=== PATIENT | female | born 1980 | race Caucasian/White ===

== ENCOUNTER 2017-12-02 20:18 | Emergency (ER) | payer BC, MEDICAID ==
--- NOTE | 2017-12-02 21:00 | Emergency Department Record ---
History of Present Illness - General Chief Complaint: Shortness of breath Stated Complaint: AYDEN Time Seen by Provider: 12/02/17 20:53 Source: Patient Mode of Arrival: Ambulatory Limitations: No limitations - History of Present Illness Initial Comments: 37 yo female presents to ED for evaluation of difficulty in breathing symptoms that began last night and non-productive cough symptoms. Patient reports that she was released from [facility] this afternoon following . Patient reports fever and symptoms of "bronchitis" that she gets annually. Patient denies worsening abdominal pain following delivery or vaginal discharge symptoms. Patient denies health problems other than asthma. MD Complaint: Shortness of breath Onset/Timin -: Days(s) Severity: Moderate Consistency: Constant Improves With: Nothing Worsens With: Nothing Associated Symptoms: Fever Treatments Prior to Arrival: None - Related Data Home Oxygen Therapy: No Home Medications Medication Instructions Recorded Confirmed Last Taken Oxycodone HCl/Acetaminophen 1 tab PO Q6H PRN 12/02/17 12/02/17 Unknown [Oxycodone/Acetaminophen 5mg/325mg] Previous Rx's Medication Instructions Recorded Amoxicillin 500 mg PO TID #30 capsule 12/02/17 Allergies Allergy/AdvReac Type Severity Reaction Status Date / Time hydrocodone AdvReac VOMITING Verified 12/02/17 21:15 Review of Systems Constitutional: Reports: Chills, Fever, Malaise. Denies: Night sweats Eyes: Denies: Eye discharge, Eye pain ENT: Denies: Congestion, Ear pain, Epistaxis Respiratory: Reports: Cough, Dyspnea Cardiovascular: Denies: Chest pain, Dyspnea on exertion, Edema Endocrine: Denies: Fatigue, Heat or cold intolerance Gastrointestinal: Denies: Abdominal pain, Nausea, Vomiting Genitourinary: Denies: Incontinence, Retention Musculoskeletal: Denies: Arthralgia, Back pain, Joint swelling Skin: Denies: Bruising, Change in color Neurological: Denies: Abnormal gait, Confusion, Headache, Seizure Psychiatric: Denies: Anxiety Hematological/Lymphatic: Denies: Anemia, Blood Clots Physical Exam - General General Appearance: Alert, Oriented x3, Cooperative, Mild distress Limitations: No limitations - Head Head exam: Atraumatic, Normocephalic, Normal inspection Head exam detail: negative: Abrasion, Contusion, Morales's sign, General tenderness, Hematoma, Laceration - Eye Eye exam: Normal appearance. negative: Conjunctival injection, Periorbital swelling, Periorbital tenderness, Scleral icterus - ENT Ear exam: negative: Auricular hematoma, Auricular trauma Nasal Exam: negative: Active bleeding, Discharge, Dried blood, Foreign body Mouth exam: negative: Drooling, Laceration, Muffled voice, Tongue elevation - Neck Neck exam: Normal inspection. negative: Meningismus, Tenderness - Respiratory Respiratory exam: Normal lung sounds bilaterally. negative: Rales, Respiratory distress, Rhonchi, Stridor - Cardiovascular Cardiovascular Exam: Regular rate, Normal rhythm, Normal heart sounds - GI/Abdominal GI/Abdominal exam: Soft. negative: Rebound, Rigid, Tenderness - Rectal Rectal exam: Deferred - exam: Deferred - Extremities Extremities exam: Normal inspection. negative: Calf tenderness, Pedal edema, Tenderness - Back Back exam: Denies: CVA tenderness (R), CVA tenderness (L) - Neurological Neurological exam: Alert, Normal gait, Oriented X3 - Psychiatric Psychiatric exam: Normal affect, Normal mood - Skin Skin exam: Normal color, Other (There is no erythema or induration to the left breast on examination, fullness and discomfort are likely the resuult of a blocked duct.). negative: Abrasion Type of lesion: negative: abrasion Course Vital Signs 12/02/17 20:52 Temperature 100.1 F H Pulse Rate [ 86 Pulse Ox Probe] Respiratory 20 Rate Blood Pressure 169/98 [Left Arm] Pulse Ox 97 - Reevaluation(s) Reevaluation #1: 12/02/17 21:41 UA pending, labs are otherwise grossly unremarkable for an acute process. Reevaluation #2: 12/02/17 22:01 CXR: No acute process. UA pending at this time. Reevaluation #3: 12/02/17 22:22 UA reviewed: WBC 0-2 RBC TNTC Bacteria: Few Reevaluation #4: 12/02/17 22:56 Case was discussed with Dr. Melchor (on-call for Dr. Layton), recommends follow-up in 1-2 days for BP evaluation and reassessment. Patient was updated on all results and appears stable for discharge on Amoxicillin for URI symptoms. Patient has no clinical evidence for endometritis on examination Medical Decision Making - Lab Data Result diagrams: 12/02/17 21:05 12/02/17 21:05 Disposition Disposition: Discharge Clinical Impression: fever Disposition: Home, Self-Care Condition: (2) Stable Instructions: Upper Respiratory Infection (ED) Additional Instructions: Return to ED if your symptoms worsen or if you have any concerns. Amoxicillin as directed. Follow-up with your family doctor in 1-2 days as directed. Prescriptions: Amoxicillin 500 mg PO TID #30 capsule Forms: Patient Portal Access Time of Disposition: 23:00 Quality - Quality Measures Quality Measures: N/A - Blood Pressure Screening Does Patient Have Any of the Following: No Blood Pressure Classification: Pre-Hypertensive BP Reading Systolic Measurement: 130 Diastolic Measurement: 84 Screening for High Blood Pressure: < Pre-Hypertensive BP, F/U Documented > [ [id number]] Pre-Hypertensive Follow-up Interventions: Referral to alternative/primary care provider.
[2017-12-02] MEDS ORDERED: ACETAMINOPHEN 500 MG TABLET PO ONE (21:07)
[2017-12-02 21:15] LABS: HEMATOCRIT 39.7 % (35.0-47.0); HEMOGLOBIN 12.5 gm/dl (11.6-16.0); MEAN CELL VOLUME 85.2 fl (81-97); MEAN CORPUSCULAR HEMOGLOBIN 26.8 pg (27-33); MEAN CORPUSCULAR HGB CONC 31.5 g/dl (32-36); MEAN PLATELET VOLUME 10.6 fl (7.4-10.4); PLATELET COUNT 211 K/uL (130-400); RED BLOOD COUNT 4.66 M/uL (3.80-5.40); RED CELL DISTRIBUTION WIDTH 15.3 % (11.5-14.5); WHITE BLOOD COUNT W/O DIFF 8.4 K/uL (4.2-12.2)
[2017-12-02 21:25] LABS: BLOOD UREA NITROGEN 15 mg/dL (6-20); CREATININE 0.6 mg/dL (0.5-0.9); EST GLOMERULAR FILTRATION RATE > 60 mL/min
[2017-12-02 21:26] LABS: INFLUENZA A NEGATIVE (NEGATIVE); INFLUENZA B NEGATIVE (NEGATIVE); TOTAL PROTEIN 6.7 g/dL (6.6-8.7)
[2017-12-02 21:28] LABS: GLUCOSE,RANDOM 96 mg/dL (74-109)
[2017-12-02 21:31] LABS: ALB/GLOB RATIO 1.3 (1.1-1.8); ALBUMIN 3.8 g/dL (4.0-5.0); ALKALINE PHOSPHATASE 78 U/L (35-104); ALT/SGPT 16 U/L (<33); AST/SGOT 14 U/L (10.0-35.0)
[2017-12-02 22:11] LABS: URINE BILIRUBIN NEGATIVE (NEGATIVE); URINE BLOOD LARGE (NEGATIVE); URINE GLUCOSE (UA) NEGATIVE (NEGATIVE); URINE KETONE NEGATIVE (NEGATIVE); URINE LEUKOCYTE ESTERASE TRACE (NEGATIVE); URINE NITRITE NEGATIVE (NEGATIVE); URINE UROBILINOGEN 0.2 E.U./dL (0.20 - 1.00)
[2017-12-02 22:14] LABS: URINE APPEARANCE SL CLOUDY; URINE COLOR RED
[2017-12-02 22:19] LABS: URINE BACTERIA FEW; URINE EPITHELIAL CELLS 0 - 2 (FEW); URINE WBC 0 - 2 (0-2/hpf)
[2017-12-02] MEDS ORDERED: AMOXICILLIN 500MG CAPSULE PO ONE (23:00)
--- NOTE | 2017-12-03 20:38 | RADIOLOGY REPORT ---
EXAM: CHEST 2 VIEWS HISTORY: GAVE THREE DAYS AGO, NOW HAS COUGH AND DIFFICULTY IN BREATHING, BODY ACHES AND CHILLS. TECHNIQUE: PA and lateral views. COMPARISON: None. FINDINGS: Heart size is within normal limits. No definite acute infiltrate seen. No pleural effusion or pneumothorax evident. Mild thoracic curve to the right. IMPRESSION: 1. MILD THORACIC CURVE TO THE RIGHT. 2. NO ACUTE INFILTRATE IDENTIFIED. JOB NUMBER: [id number] MTDD
== END 2017-12-02 23:23 | disposition home or self-care (01) ==
LOC: ER 20:18
DX: O86.4 Pyrexia of unknown origin following delivery (principal); R06.02 Shortness of breath; R05 Cough
CPT/HCPCS: 71046; 80053; 81001; 85027; 87400; 99283; 99284